=== PATIENT | female | born 1980 | race African-American/Black ===

== ENCOUNTER 2019-11-14 13:23 | Outpatient (RCR) | payer OTHER ==
[~2019-11-14] VITALS: Ht 165.1 cm; Wt 78.9 kg
[2019-11-14 15:23] LABS: BASOPHILS % (AUTO) 1 % (0-10); EOSINOPHILS # (AUTO) 0.1 10^3/uL (0.0-0.3); EOSINOPHILS % (AUTO) 1 % (0-10); HEMATOCRIT 38 % (35-52); HEMOGLOBIN 12.3 G/DL (11.5-16.0); LYMPHOCYTES # (AUTO) 0.9 X 10^3 (1.0-4.0); LYMPHOCYTES % (AUTO) 19 % (12-44); MEAN CORPUSCULAR HEMOGLOBIN 30 PG (25-34); MEAN CORPUSCULAR HGB CONC 32 G/DL (32-36); MEAN CORPUSCULAR VOLUME 94 FL (80-99); MEAN PLATELET VOLUME 9.4 FL (7.4-10.4); MONOCYTES # (AUTO) 0.3 X 10^3 (0.0-1.0); MONOCYTES % (AUTO) 6 % (0-12); NEUTROPHILS # (AUTO) 3.3 X 10^3 (1.8-7.8); NEUTROPHILS % (AUTO) 73 % (42-75); PLATELET COUNT 301 10^3/uL (130-400); WHITE BLOOD COUNT 4.6 10^3/uL (4.3-11.0)
[2019-11-14 15:34] LABS: ALBUMIN 4.4 GM/DL (3.2-4.5); CHLORIDE 105 MMOL/L (98-107); POTASSIUM 3.7 MMOL/L (3.6-5.0); SODIUM 141 MMOL/L (135-145)
[2019-11-14 15:35] LABS: CALCIUM 9.3 MG/DL (8.5-10.1)
[2019-11-14 15:36] LABS: GLUCOSE 90 MG/DL (70-105)
[2019-11-14 15:37] LABS: TOTAL PROTEIN 6.9 GM/DL (6.4-8.2)
[2019-11-14 15:38] LABS: BILIRUBIN,TOTAL 0.3 MG/DL (0.1-1.0); CARBON DIOXIDE 26 MMOL/L (21-32)
[2019-11-14 15:40] LABS: ALKALINE PHOSPHATASE 64 U/L (40-136); CREATININE SERUM 0.75 MG/DL (0.60-1.30); GFR ESTIMATED > 60
[2019-11-14 15:41] LABS: BUN/CREATININE RATIO 9
[2019-11-14 15:43] LABS: ALANINE AMINOTRANSFERASE 22 U/L (0-55)
[2019-11-17] MEDS ORDERED: FAMOTIDINE 20MG/2ML IV (CANCER CTR) IV SCH (08:45)
[2019-11-17] MEDS ORDERED: CTR IV SCH (08:45)
[2019-11-17] MEDS ORDERED: PACLITAXEL PROTEIN IV SCH (08:45)
[2019-11-17] MEDS ORDERED: NS IV 1000 ML (CANCER CTR) IV SCH (08:45)
[2019-11-17] MEDS ORDERED: diphenhydrAMINE 25 MG TAB (BENADRYL) CANCER CENTER PO SCH (08:45)
[2019-11-17] MEDS ORDERED: NS IV SCH (08:45)
[2019-11-17] MEDS ORDERED: ATEZOLIZUMAB IV SCH (08:45)
== END 2020-02-12 | disposition home or self-care (01) ==
LOC: ONC 13:23
PROVIDERS: ATTEND Internal Medicine Hematology & Oncology
DX: C50.811 Malignant neoplasm of overlapping sites of right female breast (principal); C78.00 Secondary malignant neoplasm of unspecified lung; C79.31 Secondary malignant neoplasm of brain; Z95.828 Presence of other vascular implants and grafts
CPT/HCPCS: 80053; 85025; 86304; G0463; 99213

== ENCOUNTER 2020-02-17 14:30 | Outpatient (RCR) | payer OTHER, MEDICAID | END 2020-05-17 | disposition home or self-care (01) | LOC: ONC 14:30 | PROVIDERS: ATTEND Internal Medicine Hematology & Oncology | DX: C50.811 Malignant neoplasm of overlapping sites of right female breast (principal); C79.31 Secondary malignant neoplasm of brain; C78.00 Secondary malignant neoplasm of unspecified lung | CPT/HCPCS: 99213 ==